=== PATIENT | male | born 1965 | race Caucasian/White ===

== ENCOUNTER 2023-07-17 19:33 | Emergency (ER) | payer BC, SELFPAY ==
--- NOTE | 2023-07-17 19:36 | ED.ANIMALBIT ---
HPI - Animal Bite General Chief Complaint: Animal Bite Stated Complaint: Cat Bite Right Hand Time Seen by Provider: 07/17/23 19:36 Source: patient Mode of arrival: ambulatory Limitations: no limitations History of Present Illness HPI narrative: Ruy is a 57-year-old male patient presenting to the clinic today with complaints of a cat bite to his right hand that occurred at 7:15 this evening. 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 States the cat had a injured foot and they were trying to hold the cat down in the cat bit and scratched the patient. Tetanus status is unknown. Related Data Allergies Allergy/AdvReac Type Severity Reaction Status Date / Time Penicillins Allergy Rash Verified 07/17/23 19:44 Review of Systems Review of Systems: Pertinent positives per HPI. Patient denies any fever, chills, rash, headache, visual changes, dizziness, cough, runny nose, sore throat, shortness of breath, chest pain, palpitations, nausea, vomiting, diarrhea, constipation, abdominal pain, or any urinary issues. PMFSH Comments At the time of my signature, I reviewed and agree with the nursing past medical, surgical, social, and family history. There is no relevant family history pertinent to the patient complaint. Exam Narrative: General: Well-developed, well nourished, in no apparent distress Head: Normocephalic, atraumatic. Cardio: Regular rate and rhythm, s1 and s2 normal, no murmur appreciated. Resp: Clear to auscultation bilaterally, no rhonchi, rales, wheezing or rubs. Musculoskeletal: No deformity, puncture wounds to the webbing in between the thumb and the 2nd finger-3 puncture wounds to the dorsal hand and 1 puncture wound to the palmar aspect, patient has 2 scratches to the dorsal left hand, tender to palpation with mild swelling to the right hand, no abscess or induration palpable, grossly normal range of motion, muscle strength strong and equal, peripheral pulse strong, no edema, no cyanosis, normal gait and station Course Course Emergency Course: Portions of this record may have been created with voice recognition software. Level of Care: Express Care Visit Vital Signs Vital signs: Vital signs reviewed MDM - Animal Bite MDM Narrative Medical decision making narrative: At the time of visit patient is resting on the exam table. Patient has a cat bite to the right hand. I will place the patient on doxycycline and metronidazole as he has a penicillin allergy. Tetanus was updated in the clinic today. Discussed rabies vaccine with the patient and explained that he would need to go to the emergency room or to the local health department for this. Explained that the incidence is low in [facility] as a of only had 1 incidence of rabies and 2021 and there has been no incidents in 2022. Supportive measures were discussed with the patient he voiced understanding of the discharge instructions and agrees to treatment plan. Differential Diagnosis Differential diagnosis: Likely bite by animal and cat bite Discharge Plan Discharge Clinical Impression: Cat bite of right hand Patient Disposition: Home, Self-Care Condition: Stable Instructions: Antibiotic Form, Animal Bite (ED) Additional Instructions: Tetanus shot given in clinic Rabies information discussed with the patient and if he would like to get a rabies vaccine he will need to go to the local ER or the [facility] Department.-explained to the patient that there is a low incidence of rabies in [facility]. There was 1 case of rabies in a bat in 2021 and since there is been no rabies incidence. Take doxycycline and metronidazole as prescribed May take Tylenol/Motrin as needed for pain Increase fluids and stay well hydrated Wash wounds twice daily with soap and water May apply triple antibiotic ointment to the puncture wounds twice daily Follow-up with your PCP in 3-5 days if symptoms persist or soone
[2023-07-17 19:53] VITALS: BP 168/73; PULSE 100; RESP 16; TEMP 37.6; O2SAT 99
[2023-07-17] MEDS: TETANUS,DIPHTHERIA,AC PERTUSSIS ADULT (0.5 ML) BOOSTRIX IM (20:14)
--- NOTE | 2023-07-17 20:15 | PC.NURSE ---
boostrix given per order . TD not given due to incorrect order per provider
== END 2023-07-17 20:17 | disposition home or self-care (01) ==
PROVIDERS: Emergency Provider Nurse Practitioner Family
DX: S61.451A Open bite of right hand, initial encounter (principal); W55.01XA Bitten by cat, initial encounter; Z23 Encounter for immunization
CPT/HCPCS: 90471; 90715; 99203; G0463